=== PATIENT | male | born 1945 | race Caucasian/White ===

== ENCOUNTER 2017-09-24 01:01 | Inpatient (IN) | payer OTHER, MEDICARE ==
[~2017-09-24] VITALS: Ht 180.3 cm; Wt 90.7 kg
[~2017-09-24 01:01] MED LIST: ASPIRIN325 M2 PO; CARDIZEM30 M1; FIBER500 MG; FOSINOPRIL SODI40 M1 PO; MAGNESIUM400 M1; MULTIVITAMINS1 EAC9 PO; OMEPRAZOLE40 M1 PO
--- NOTE | 2017-09-24 10:03 | Operative Report ---
Operative/Inv Procedure Report Surgery Date: 09/24/17 Name of Procedure: Right total knee arthroplasty Pre-Operative Diagnosis: Right knee primary osteoarthritis Post-Operative Diagnosis: Same Estimated Blood Loss: scant Surgeon/Operating Room Tech: Kierra PATTERSON,Ovidio Kowalski Anesthesia: block Implants: Ribera triathlon total knee system-size 6 femur, size 6 tibia, 11 mm cruciate retaining polyethylene, 36 patella Drains: None Specimens: Femoral, tibial, patellar bone, remnants of medial lateral meniscal tissues Microbiology: Urine Tourniquet: 61 minutes Complications: None Condition: Stable Operative Indication: Patient is a 72-year-old man with a long history of gradually worsening right knee symptomsave interfere with normal activities of daily living. He was treated by his primary orthopedic doctor for years. Treatment has included activity modification, medications and injections. Unfortunately, he had gradually worsening symptoms. He wished to proceed with total knee arthroplasty after risks benefits and expectations of the procedure were discussed which included but were not limited to persistent knee pain, need for substance surgery, infection, DVT, injury blood vessel or nerve, anesthesia risks. Patient has a severe varus alignment of the right lower extremity which also contributed to mechanical symptoms Operative/Procedure Note Note: Patient was brought to the operating room and transferred to the operating table. Once under appropriate anesthesia the right lower extremity was prepped and draped in standard fashion. Preoperative IV antibiotics were given prophylactically. A standard anterior incision was made after the leg was elevated exsanguinated and tourniquet was inflated. Incision was taken down sharply to the underlying retinaculum. A medial retinacular approach was used to enter the knee with a minimal extension into the quadriceps tendon. Severe end-stage degenerative changes of the medial compartment moderately severe changes of the lateral and patellofemoral compartment were noted. Osteophytes were excised. Remnants of the anterior horns of the medial and lateral meniscal tissues were excised. ACL was excised. Retractors were placed. The knee was flexed with the patellar subluxed. I used a drill to enter the intramedullary canal the distal femur for the intramedullary guide for the distal femoral cut. This was pinned in position for a 6 valgus alignment. The appropriate thickness was removed and then the femur was sized to a size 6. Size 6 cutting block was used to finish off the distal femur. I was satisfied with the preparation of the femur. I turned my attention to the tibia. I used the external tibial alignment guide to provide a neutral cut from medial to lateral and reproducing patient's posterior slow-paced on preoperative templating and intraoperative findings. The cut was made while protecting soft tissues medially laterally and posteriorly. The PCL was recessed for balancing purposes. The medial compartment was released for balancing purposes as well I was satisfied with a symmetric nature of the compartment. I then sized the tibia to a size 6. I did a trial reduction with a size 6 tibia size 6 femur and a 11 mm polyethylene. I was satisfied with the full extension. Good mid flexion stability and full flexion to gravity. I took the knee out to full extension and finished preparation of the patella. The patella was measured and the appropriate thickness was removed. It was replaced by 36 motor patellar button which restored the thickness of the patella. 3 lug holes were drilled. Tracking was excellent. I then the knee through range of motion. I marked my rotation tibia and drilled my 2 lug holes for the femur. Tibia was finished with the appropriate size tibial punch. I then took all instruments from the knee and didn't copious irrigation of the knee. I used the anterior chamfer bone of the distal femur to plug the intramedullary hole to minimize postoperative hemarthrosis and placed swelling. Bony surfaces were copiously irrigated as cement was being mixed on the back table. Once the cement was ready was applied to the dry clean bony surfaces of the tibia. The size 6 tibia was impacted in place and excess cement was removed with curettes. Cement was applied to the dry clean bony surfaces of distal femur and the 6 femur was impacted in place. Excess cement was removed with curettes. 11 mm insert was applied and take knee was taken out to full extension. Cement was applied to the dry clean bony surfaces of the patella and the 36 patella was impacted in place and excess cement was removed with a knife. Once the cement was hardening took the knee through range of motion. Excess cement was removed with a small osteotome. During the cement hardening process I did appear articular pericapsular injection of a cocktail which included ropivacaine with epinephrine and Toradol for postoperative pain and inflammation management. I was satisfied with the 11 mm insert. I removed the trial insert and copiously irrigated tibial tray. I major there was no remaining soft tissue, bone fragments or cement fragments within the tibial tray and then I impacted the definitive size 11 mm cruciate retaining polyethylene in place and the locking mechanism was confirmed. After copious irrigation the tourniquet was deflated at 61 minutes. Hemostasis was obtained. There was no need for a drain area I was satisfied with the stability in full extension mid flexion and full flexion to gravity. Irrigation followed every level of closure. The retinaculum was closed with interrupted #1 Vicryl sutures including the minimal extension of the quadriceps tendon. Subcutaneous tissues closed in 2 layers with 2-0 Vicryl and skin was closed with a running 3-0 Vicryl suture with the knee in flexion. Appropriate dressings were applied and patient was awakened and taken to recovery room in good condition. No intraoperative complications. Blood loss was scant Discharge Disposition: PACU
--- NOTE | 2017-09-24 10:14 | Admission Core Measures ---
Acute Coronary Syndrome (CM) ACS Core Measures Acute Coronary Syndrome Diagnosis No Congestive Heart Failure (NEW) CHF Core Measures Congestive Heart Failure Diagnosis No Cerebrovascular Accident (NEW) CVA Core Measures CVA/TIA Diagnosis No Venous Thromboembolism VTE Core Theodore (View Protocol) VTE Risk Factors Surgery No Mechanical VTE Prophylaxis d/t N/A MechProphylax Ordered No VTE Pharm Prophylaxis d/t NA PharmProphylax ordered Problem List As ranked by this Provider includes Assessment & Plan 1. Primary osteoarthritis of right knee HOME MEDS Home Med List Aspirin (Aspirin*) 325 MG TABLET 1 TAB PO DAILY CARDIAC (Reported) Fosinopril Sodium 40 MG TABLET 1 TAB PO DAILY HTN (Reported) Multiple Vitamin (Multivitamins) 1 EACH TABLET 1 TAB PO DAILY SUPPLEMENT ( Reported) Omeprazole 40 MG CAPSULE.DR 1 CAP PO DAILY GERD (Reported)
--- NOTE | 2017-09-24 10:18 | Patient Discharge Instructions ---
Discharge Instructions General Discharge Information You were seen/treated for: RIGHT KNEE PAIN You had these procedures: RIGHT TOTAL KNEE REPLACEMENT Watch for these problems: FEVER OVER 101 REDNESS AROUND INCISION DRAINAGE FROM INCISION UNABLE TO BEAR WEIGHT ON RIGHT LEG No bath, but you may shower: Yes Other wound care: KEEP INCISION CLEAN AND DRY Special Instructions: NO DRIVING WHILE TAKING PAIN MEDICATION To stop taking Aspirin 325 daily until instructed to resume taking by Dr. Lozada Diet Continue normal diet: Yes Activity Activity Self Limited: Yes Activity Limited to: Weight bear as tolerated (WITH ROLLING WALKER) Acute Coronary Syndrome Inclusion Criteria At DC or during hospital stay patient has or had the following: ACS DIAGNOSIS No Discharge Core Measures Meds if any: Prescribed or Continued at Discharge Meds if any: NOT Prescribed or Continued at Discharge Congestive Heart Failure Inclusion Criteria At DC or during hospital stay patient has or had the following: CHF DIAGNOSIS No Discharge Core Measures Meds if any: Prescribed or Continued at Discharge Meds if any: NOT Prescribed or Continued at Discharge Cerebrovascular accident Inclusion Criteria At DC or during hospital stay patient has or had the following: CVA/TIA Diagnosis No Discharge Core Measures Meds if any: Prescribed or Continued at Discharge Meds if any: NOT Prescribed or Continued at Discharge Venous thromboembolism Inclusion Criteria VTE Diagnosis No VTE Type NONE VTE Confirmed by (Test) NONE Discharge Core Measures - Per Current guidelines, there needs to be overlap - treatment for the first 5 days of Warfarin therapy. - If discharged on Warfarin prior to 5 days of - overlap therapy, the patient will need to be - assessed for post discharge needs including - *Post discharge parental anticoagulation - *Warfarin and/or parental anticoagulation education - *Follow up date to check INR post discharge At least 5 days overlap therapy as Inpatient No Meds if any: Prescribed or Continued at Discharge Note: Overlap Therapy is Warfarin and Anticoagulant Meds if any: NOT Prescribed or Continued at Discharge
--- NOTE | 2017-09-24 10:23 | Surgical Discharge Summary ---
Visit Information Visit Dates Admission Date: 09/24/17 History of Present Illness Chief Complaint: RIGHT KNEE PAIN Medical History Influenza Vaccine: 03/15/11 Surgical History Pertinent Surgical History: non-contributory Psychosocial History Who Do You Live With? Spouse What is Your Primary Language? Wolof Review of Systems: PER HPI Hospital Course Course Attending Physician: Kierra PATTERSON,Dex Primary Care Physician: Anmol Carpio MD Hospital Course: Pt presented to [facility] on 09/24[facility]17 for an elective right total knee arthroplasty. Pt tolerated the procedure well. Post-operatively he voided spontaneously, tolerated PO intake, pain was managed with oral medication, he ambulated with physical therapy and was cleared for discharge to home with home health services. Discharge instructions were reviewed with the patient. He was given instructions to follow-up with Dr. Lozada in 2 weeks and to call sooner if he has any questions or concerns Allergies: Coded Allergies: vancomycin (Intermediate, RED MAN SYNDROME 09/13/17) Disposition Summary Disposition Principal Diagnosis: primary right knee OA Additional Diagnosis: SP R TKA Discharge Disposition: home health services Discharge Instructions General Discharge Information Code Status: Full Code Patient's Diet: regular Patient's Activity: WBAT with rolling walker Follow-Up Instructions/Appts: Fu in [address] Lozada Copies To: Anmol Carpio MD
[2017-09-24 12:08] VITALS: BP 128/80
[2017-09-24 13:38] VITALS: BP 154/820
--- NOTE | 2017-09-24 13:53 | PN- Orthopedic ---
Subjective Subjective: POST_OP CHECK pt sitting in bed, minimal pain. Denies parethesias. aout to work with PT Tolerating PO, newsome in. No n/v Objective Vital Signs and I&Os Vital Signs Date Time Temp Pulse Resp B/P B/P Pulse O2 O2 Flow FiO2 Mean Ox Delivery Rate 09/24 1338 66 20 154/820 95 Room Air 09/24 1208 98.6 66 20 128/80 95 Room Air Intake & Output 09/24 1600 09/24 0800 09/24 0000 09/23 1600 09/23 0800 09/23 0000 Intake Total Output Total Balance Patient 200 lb Weight Weight Bed scale Measurement Method Physical Exam: gen- NAD resp- clear cardiac- RRR abd- soft- NT ext- R knee wrapped in lorelei-bandage. 2+ DP pulse. distal sensory and motor function intact. no calf tenderness Current Medications: Current Medications Sig/Colin Start time Last Medication Dose Route Stop Time Status Admin Acetaminophen 0 .STK-MED ONE 09/24 07 DC PO Apixaban 2.5 MG BID 09/25 899 AC PO Cefazolin Sodium 2 GM SEE ADMIN CRITERIA 09/24 1500 CAN IV 09/25 1459 Cefazolin Sodium 2 GM Q8 09/24 1400 AC N/A 1 UNIT IV 09/24 2229 Cefazolin Sodium 2,000 MG ONE 09/24 0000 DC IV 09/24 2359 Celecoxib 400 MG DAILY 09/25 899 AC PO Celecoxib 400 MG ONCE ONE 09/24 07 DC PO 09/24 0701 Dexamethasone 0 .STK-MED ONE 09/24 07 DC .ROUTE Dextrose/Lactated 1,000 ML Q13H 09/24 1145 AC 09/24 Ringer's IV 1325 Docusate Sodium 100 MG DAILY NEEDED PRN 09/24 1145 AC PO Gabapentin 0 .STK-MED ONE 09/24 07 DC PO Lisinopril 10 MG DAILY 09/25 09 AC PO Magnesium Oxide 400 MG DAILY 09/25 09 AC PO Morphine Sulfate 2 MG Q3P PRN 09/24 1145 AC IV Morphine Sulfate 4 MG Q3P PRN 09/24 1145 AC IV Omeprazole 40 MG DAILY AC 09/25 07 AC PO Ondansetron HCl 4 MG Q6P PRN 09/24 1145 AC IV Oxycodone HCl 0 .STK-MED ONE 09/24 0701 DC PO Oxycodone/ 1 TAB Q4P PRN 09/24 1145 AC Acetaminophen PO Oxycodone/ 2 TAB Q4P PRN 09/24 1145 AC Acetaminophen PO Polyethylene Glycol 17 GM DAILY NEEDED PRN 09/24 1145 AC PO Ropivacaine 500 ML ONCE ONE 09/24 0830 DC ON-Q Ball 1 BAG INJ 09/26 0209 Scopolamine HBr 0 .STK-MED ONE 09/24 0701 DC TOP Senna/Docusate Sodium 2 TAB AT BEDTIME NEED.. 09/24 1145 AC PO Assessment/Plan Assessment/Plan 72yo M Sp R TKA POD0. stable PO pain management, IV meds for breakthrough PT- WBAT w rolling walker DVT ppx- eliquis reg diet, will DC IVF in AM reg home meds dressing change POD2 FU am labs DC planning- plan for home in 2-3 days with [facility] Core Measures Venous Thromboembolism VTE Risk Factors Surgery No Mechanical VTE Prophylaxis d/t N/A MechProphylax Ordered No VTE Pharm Prophylaxis d/t NA PharmProphylax ordered
[2017-09-24 15:34] VITALS: BP 140/90
[2017-09-24 20:20] VITALS: BP 110/70
[2017-09-24 22:36] VITALS: BP 112/79
[2017-09-25 02:40] VITALS: BP 117/79
[2017-09-25 07:22] VITALS: BP 120/73
[2017-09-25 08:38] LABS: ABSOLUTE BASOPHIL COUNT 0 /CUMM (0.0-0.2); ABSOLUTE EOSINOPHIL COUNT 0 /CUMM (0.0-0.7); ABSOLUTE GRANULOCYTE CT 15.3 /CUMM (1.4-6.5); ABSOLUTE LYMPH COUNT 1.7 /CUMM (1.2-3.4); ABSOLUTE MONOCYTE COUNT 1.7 /CUMM (0.10-0.60); BASOPHIL % 0.2 % (0.0-2.0); EOSINOPHIL % 0 % (0-5); GRANULOCYTE % 81.8 % (42.2-75.2); HEMATOCRIT 34.6 % (42-52); MEAN CORPUSCULAR HGB 31.8 PG (27.0-31.0); MEAN CORPUSCULAR HGB CONC 33.9 G/DL (33.0-37.0); MEAN CORPUSCULAR VOLUME 93.7 FL (80.0-94.0); MEAN PLATELET VOLUME 8.7 FL (7.4-10.4); PLATELET COUNT 177 /CUMM (130-400); RBC DISTRIBUTION WIDTH 13.5 % (11.5-14.5); WHITE BLOOD CELL COUNT 18.7 /CUMM (4.8-10.8)
--- NOTE | 2017-09-25 09:20 | PN- Orthopedic ---
See Addendum Subjective Subjective: pt sitting in chair, no pain. newsome just removed so he is due to void. +flatus. denies paresthesias, ambulating, minimal pain tolerating PO Objective Vital Signs and I&Os Vital Signs Date Time Temp Pulse Resp B/P B/P Pulse O2 O2 Flow FiO2 Mean Ox Delivery Rate 09/25 0837 69 120/73 09/25 0722 98.3 69 20 120/73 96 Room Air 09/25 0240 98.0 75 20 117/79 95 Room Air 09/24 2236 98.2 71 18 112/79 95 Room Air 09/25 2019 98.4 70 20 110/70 93 Room Air 09/24 1534 98.1 80 20 140/90 93 09/24 1338 66 20 154/820 95 Room Air 09/24 1208 98.6 66 20 128/80 95 Room Air Intake & Output 09/25 1600 09/25 0800 09/25 0000 09/24 1600 09/24 0800 09/24 0000 Intake Total 120 1597 1860 Output Total 700 550 765 Balance -974 508 2838 1095 Intake, IV 597 1500 Intake, Oral 120 1000 360 Number 0 Bowel Movements Output, Urine 700 550 765 Patient 200 lb Weight Weight Bed scale Measurement Method Physical Exam: gen- NAD resp- clear cardiac- RRR abd- soft, NT ext- right kne wrapped in lorelei, reinforced due to bleeding through dressing last night. OnQ in place. 2+ PT pulse on right. distal sensory and motor function intact. calves soft, nt bilaterally Current Medications: Current Medications Sig/Colin Start time Last Medication Dose Route Stop Time Status Admin Apixaban 2.5 MG BID 09/25 09 AC 09/25 PO 0837 Cefazolin Sodium 2 GM SEE ADMIN CRITERIA 09/24 1500 CAN IV 09/25 1459 Cefazolin Sodium 2 GM Q8 09/24 1400 DC 09/24 N/A 1 UNIT IV 09/24 2228 2151 Cefazolin Sodium 2,000 MG ONE 09/24 0000 DC IV 09/24 2359 Celecoxib 400 MG DAILY 09/25 0900 AC 09/25 PO 0837 Dextrose/Lactated 1,000 ML Q13H 09/24 1145 AC 09/24 Ringer's IV 1325 Docusate Sodium 100 MG DAILY NEEDED PRN 09/24 1145 AC PO Lisinopril 10 MG DAILY 09/25 0900 AC 09/25 PO 0837 Magnesium Oxide 400 MG DAILY 09/25 0900 AC 09/25 PO 0837 Morphine Sulfate 2 MG Q3P PRN 09/24 1145 AC IV Morphine Sulfate 4 MG Q3P PRN 09/24 1145 AC IV Omeprazole 40 MG DAILY AC 09/25 0700 AC 09/25 PO 0518 Ondansetron HCl 4 MG Q6P PRN 09/24 1145 AC IV Oxycodone/ 1 TAB Q4P PRN 09/24 1145 AC Acetaminophen PO Oxycodone/ 2 TAB Q4P PRN 09/24 1145 AC Acetaminophen PO Patient Medication 1 ED ONE ONE 09/24 1700 DC Teaching ED 09/24 1701 Polyethylene Glycol 17 GM DAILY NEEDED PRN 09/24 1145 AC PO Ropivacaine 500 ML ONCE ONE 09/24 0830 DC ON-Q Ball 1 BAG INJ 09/26 0209 Senna/Docusate Sodium 2 TAB AT BEDTIME NEED.. 09/24 1145 AC PO Assessment/Plan Assessment/Plan 72yo M SP R TKA POD1. stable. due to void OnQ to come out tomorrow pain mangfement with PO meds DVT ppx- Eliquis and alps PT- WBAT w rooling walker. cleared on stairs this morning dressing change POD2 reg diet reg home meds Core Measures Venous Thromboembolism VTE Risk Factors Surgery No Mechanical VTE Prophylaxis d/t N/A MechProphylax Ordered No VTE Pharm Prophylaxis d/t NA PharmProphylax ordered
[2017-09-25 11:40] VITALS: BP 140/80
[2017-09-25 14:08] VITALS: BP 120/70
[2017-09-25 21:38] VITALS: BP 124/68
[2017-09-26 06:47] VITALS: BP 130/90
[2017-09-26] MEDS ORDERED: PERCOCET 5-3251 EACH PO (07:43)
[2017-09-26] MEDS ORDERED: ELIQUIS2.5 M1 PO (07:43)
--- NOTE | 2017-09-26 08:25 | PN- Orthopedic ---
Surgical Brief Attending Note Brief Attending Note: Comfortable in bed. Vital signs stable Wound clean and dry. Calf is soft and nontender bilaterally area neuro intact. Status post right total knee arthroplasty-stable PT/home needs Anticoagulation
[2017-09-26 08:35] LABS: ABSOLUTE BASOPHIL COUNT 0 /CUMM (0.0-0.2); ABSOLUTE EOSINOPHIL COUNT 0.1 /CUMM (0.0-0.7); ABSOLUTE GRANULOCYTE CT 6.7 /CUMM (1.4-6.5); ABSOLUTE LYMPH COUNT 1.4 /CUMM (1.2-3.4); ABSOLUTE MONOCYTE COUNT 1.4 /CUMM (0.10-0.60); BASOPHIL % 0.3 % (0.0-2.0); EOSINOPHIL % 0.5 % (0-5); GRANULOCYTE % 69.8 % (42.2-75.2); MEAN CORPUSCULAR HGB 31.8 PG (27.0-31.0); MEAN PLATELET VOLUME 8.8 FL (7.4-10.4); PLATELET COUNT 168 /CUMM (130-400); RBC DISTRIBUTION WIDTH 13.7 % (11.5-14.5); RED BLOOD CELL CT 3.52 /CUMM (4.70-6.10); WHITE BLOOD CELL COUNT 9.6 /CUMM (4.8-10.8)
--- NOTE | 2017-09-26 09:10 | PN- Orthopedic ---
Subjective Subjective: pt in bed, minimal pain. OnQ pulled this morning. Denies paresthesias. Ambulating with PT, voiding, tolerating diet, no N/V No CP/SOB Objective Vital Signs and I&Os Vital Signs Date Time Temp Pulse Resp B/P B/P Pulse O2 O2 Flow FiO2 Mean Ox Delivery Rate 09/26 0647 97.8 75 20 130/90 92 09/25 2138 98.7 80 20 124/68 95 Room Air 09/25 1408 98.1 76 20 120/70 92 Room Air 09/25 1140 97.5 63 20 140/80 95 Room Air Intake & Output 09/26 1600 09/26 0800 09/26 0000 09/25 1600 09/25 0800 09/25 0000 Intake Total 480 1210 952 668 1993 Output Total 400 1200 1050 550 Balance 80 10 -280 272 9090 Intake, IV 10 0 597 Intake, Oral 480 1200 044 472 1537 Number 0 0 0 Bowel Movements Output, Urine 400 1200 1050 550 Physical Exam: gen- NAD resp- clear cardiacv-rrr abd- soft, NT ext- Left knee dressing changed, incision clean and dry, no signs of infection. 2+ PT pulse. distal sensory and motor function intact Current Medications: Current Medications Sig/Colin Start time Last Medication Dose Route Stop Time Status Admin Apixaban 2.5 MG BID 09/25 899 AC 09/25 PO 203 Celecoxib 400 MG DAILY 09/25 09 AC 09/25 PO 0837 Dextrose/Lactated 1,000 ML Q13H 09/24 1145 DC 09/24 Ringer's IV 1325 Docusate Sodium 100 MG DAILY NEEDED PRN 09/24 1145 AC 09/26 PO 0608 Lisinopril 10 MG DAILY 09/25 09 AC 09/25 PO 0837 Magnesium Oxide 400 MG DAILY 09/25 09 AC 09/25 PO 0837 Morphine Sulfate 2 MG Q3P PRN 09/24 1145 AC IV Morphine Sulfate 4 MG Q3P PRN 09/24 1145 AC IV Omeprazole 40 MG DAILY AC 09/25 07 AC 09/26 PO 0606 Ondansetron HCl 4 MG Q6P PRN 09/24 1145 AC IV Oxycodone/ 1 TAB Q4P PRN 09/24 1145 AC 09/25 Acetaminophen PO 1339 Oxycodone/ 2 TAB Q4P PRN 09/24 1145 AC 09/26 Acetaminophen PO 0606 Patient Medication 1 ED ONE ONE 09/25 1700 DC Teaching ED 09/25 1701 Polyethylene Glycol 17 GM DAILY NEEDED PRN 09/24 1145 AC 09/26 PO 0609 Senna/Docusate Sodium 2 TAB AT BEDTIME NEED.. 09/24 1145 AC PO Results Last 48 Hours of Labs: Laboratory Tests 09/26 09/25 0735 0735 Chemistry Sodium (137 - 145 mmol/L) 139 Potassium (3.5 - 5.1 mmol/L) 4.4 Chloride (98 - 107 mmol/L) 102 Carbon Dioxide (22 - 30 mmol/L) 26 Anion Gap (5 - 16) 11 BUN (9 - 20 mg/dL) 16 Creatinine (0.7 - 1.2 mg/dL) 0.8 Estimated GFR (>60 ml/min) > 60 BUN/Creatinine Ratio (7 - 25 %) 20.0 Hematology CBC w Diff Pending NO MAN DIFF REQ WBC (4.8 - 10.8 /CUMM) Pending 18.7 H RBC (4.70 - 6.10 /CUMM) Pending 3.70 L Hgb (14.0 - 18.0 G/DL) Pending 11.7 L Hct (42 - 52 %) Pending 34.6 L MCV (80.0 - 94.0 FL) Pending 93.7 MCH (27.0 - 31.0 PG) Pending 31.8 H MCHC (33.0 - 37.0 G/DL) Pending 33.9 RDW (11.5 - 14.5 %) Pending 13.5 Plt Count (130 - 400 /CUMM) Pending 177 MPV (7.4 - 10.4 FL) Pending 8.7 Gran % (42.2 - 75.2 %) 81.8 H Lymphocytes % (20.5 - 51.1 %) 8.9 L Monocytes % (1.7 - 9.3 %) 9.1 Eosinophils % (0 - 5 %) 0 Basophils % (0.0 - 2.0 %) 0.2 Absolute Granulocytes (1.4 - 6.5 /CUMM) 15.3 H Absolute Lymphocytes (1.2 - 3.4 /CUMM) 1.7 Absolute Monocytes (0.10 - 0.60 /CUMM) 1.7 H Absolute Eosinophils (0.0 - 0.7 /CUMM) 0 Absolute Basophils (0.0 - 0.2 /CUMM) 0 Assessment/Plan Assessment/Plan 72yo M SP R TKA POD2. stable. pain management with PO meds DVT ppx- Eliquis and alps PT- WBAT w rooling walker. cleared on stairs this morning dressing changed reg diet reg home meds- except hold ASA 325 plan for DC to home today with [facility] pending PT clearence Core Measures Venous Thromboembolism VTE Risk Factors Surgery No Mechanical VTE Prophylaxis d/t N/A MechProphylax Ordered No VTE Pharm Prophylaxis d/t NA PharmProphylax ordered
[2017-09-26 09:57] VITALS: BP 136/82
== END 2017-09-26 12:14 | disposition home health service (06) | DRG 470 ==
LOC: SDA 01:01 → EDBEDREQ 10:01 → ENRESERV 10:23 → ENTRNSPT 10:52 → EDTRNSPTSTS 11:05 → 2NB 11:14 → CMPTRNSPT 11:18 → ENPENDDIS 09-26 08:14 → ENTRNSPT 09-26 11:33 → EDTRNSPT 09-26 12:07 → EDTRNSPTSTS 09-26 12:07 → 2NB 09-26 12:14 → CMPTRNSPT 09-26 12:20
PROVIDERS: Physician Assistant Surgical
PROC: 3E0T3BZ Introduction of Anesthetic Agent into Peripheral Nerves and Plexi, Percutaneous Approach (ICD-10-PCS; principal; 2017-09-24)
PROC: 0SRC0J9 Replacement of Right Knee Joint with Synthetic Substitute, Cemented, Open Approach (ICD-10-PCS; principal; 2017-09-24)
DX: M17.11 Unilateral primary osteoarthritis, right knee (principal); I48.0 Paroxysmal atrial fibrillation; I10 Essential (primary) hypertension; J45.909 Unspecified asthma, uncomplicated; K21.9 Gastro-esophageal reflux disease without esophagitis; Z79.01 Long term (current) use of anticoagulants; N40.0 Benign prostatic hyperplasia without lower urinary tract symptoms; Z96.652 Presence of left artificial knee joint; Z90.49 Acquired absence of other specified parts of digestive tract; Z79.82 Long term (current) use of aspirin; Z88.1 Allergy status to other antibiotic agents
CPT/HCPCS: 2NBSP; 36592; 82436; 87086; 97110-GO; 97116-GO; 97161-GP; 97530-GO; C1713; J0171; J0690; J1100; J1885; J2405; J2795